=== PATIENT | male | born 1940 | race African-American/Black ===

== ENCOUNTER 2019-01-04 14:19 | Emergency (ER) | payer MEDICARE, OTHER ==
[~2019-01-04] VITALS: Ht 188 cm; Wt 90.7 kg
[2019-01-04 14:19] VITALS: BP 105/51
--- NOTE | 2019-01-04 14:20 | NUR ---
ED Nurse Note: pt brought by [facility] from [facility] due to seizure. witness by family member, no trauma reported, tonic - clonic for 2 mins. base line is AAO x1. upon arrival, pt open eyes spontaneously, follow command. BS 130 at the bed side. Dr. Gallagher notified. ekg done. on cardiac cath technologist. on seizure precaution. side rails x2 up, padded, on right side lying position, maintained airway. skin warm to touch, no open wound noted. came with diaper. will wait for the further order.
[2019-01-04 14:56] LABS: EOSINOPHILS % (AUTO) 0.6 % (0.0-3.0); HEMATOCRIT 38.7 % (42.0-52.0); LYMPHOCYTES % (AUTO) 23.1 % (20.0-45.0); MEAN CORPUSCULAR VOLUME 100 FL (80-99); MONOCYTES % (AUTO) 8.7 % (1.0-10.0); NEUTROPHILS % (AUTO) 66.6 % (45.0-75.0); PLATELET COUNT 367 K/UL (150-450); RED BLOOD COUNT 3.86 M/UL (4.70-6.10); RED CELL DISTRIBUTION WIDTH 11.7 % (11.6-14.8); WHITE BLOOD COUNT 9.5 K/UL (4.8-10.8)
--- NOTE | 2019-01-04 15:00 | NUR ---
HAND-OFF: Report given to JORDANA Ritter.
--- NOTE | 2019-01-04 15:01 | NUR ---
ED Nurse Note: Received report from JORDANA Fair. patint at no distress at this time. started IV fluids.
[2019-01-04] MEDS ORDERED: ACETAMINOPHEN325 M1 ORAL (15:06)
[2019-01-04] MEDS ORDERED: KEPPRA500 M4 ORAL (15:06)
[2019-01-04] MEDS ORDERED: SENNA8.6 M2 PO (15:06)
[2019-01-04] MEDS ORDERED: VITAMIN C250 MG ORAL (15:06)
[2019-01-04] MEDS ORDERED: NAMENDA5 MG ORAL (15:06)
[2019-01-04] MEDS ORDERED: BISACODYL10 M1 RC (15:06)
[2019-01-04 15:07] LABS: ANION GAP 8 mmol/L (5-15); BLOOD UREA NITROGEN 15 mg/dL (7-18); CALCIUM 9.4 MG/DL (8.5-10.1); CARBON DIOXIDE 30 MMOL/L (21-32); CHLORIDE 105 MMOL/L (98-107); POTASSIUM 4.1 MMOL/L (3.5-5.1); SODIUM 143 MMOL/L (136-145)
[2019-01-04 15:10] LABS: ALANINE AMINOTRANSFERASE 16 U/L (12-78); ALBUMIN 3.1 G/DL (3.4-5.0); ALBUMIN/GLOBULIN RATIO 0.9 (1.0-2.7); ALKALINE PHOSPHATASE 77 U/L (46-116); ASPARTATE AMINO TRANSFERASE 22 U/L (15-37); BILIRUBIN,TOTAL 0.6 MG/DL (0.2-1.0)
[2019-01-04 15:12] LABS: APPEARANCE,URINE SLIGHTLY CLOUDY; BILIRUBIN, URINE NEGATIVE (NEGATIVE); GLUCOSE, URINE (UA) NEGATIVE (NEGATIVE); KETONES,URINE 1+ (NEGATIVE); LEUKOCYTE ESTERASE ,URINE 1+ (NEGATIVE); NITRITE,URINE NEGATIVE (NEGATIVE); PH,URINE 5 (4.5-8.0); PROTEIN,URINE 2+ (NEGATIVE); UROBILINOGEN,URINE 4 MG/DL (0.0-1.0)
--- NOTE | 2019-01-04 15:12 | Diagnostic Imaging Report ---
Indication: Seizure Technique: Contiguous 5 mm thick transaxial imaging of the head obtained in a Siemens Sensation [address] scanner. Soft tissue and bone windows generated. Automatic Exposure Control was utilized. Total Dose length Product (DLP): 1499.[address] Dose Index Volume (CTDIvol): 70.38 mGy Comparison: none Findings: The size and configuration of the cortical sulci, basal cisterns, and ventricles are within normal limits for age. There is no mass effect, midline shift, or edema identified. There is no evidence of acute hemorrhage or abnormal intra-axial or extra-axial fluid collections. The bones and soft tissues are unremarkable. Impression: No mass effect, edema or acute bleed. The CT scanner at [facility] is accredited by the [employer] and the scans are performed using dose optimization techniques as appropriate to a performed exam including Automatic Exposure control.
[2019-01-04 15:20] LABS: COLOR,URINE YELLOW
[2019-01-04] MEDS ORDERED: cefTRIAXone 1 GM in NS 55 ML IVPB ONE (15:45)
[2019-01-04] MEDS ORDERED: Phenytoin 500 MG in NS 110 ML IVPB ONE (15:45)
--- NOTE | 2019-01-04 16:16 | Emergency Room Report ---
History of Present Illness General Chief Complaint: Seizure Source: Medical Record, EMS Present Illness HPI 78-year-old male presents ED for evaluation. Patient brought in by EMS from alf facility. Had a witnessed seizure at facility. No reported head injury. Patient has history of dementia and is at baseline mentation. History of seizures and takes Keppra. Unable to provide any additional history at this time. No reported signs of distress. No other aggravating relieving factors. No other associated symptoms Allergies: Coded Allergies: No Known Allergies (Unverified , 01/04/19) Patient History Past Medical History: seizures Past Surgical History: none Pertinent Family History: none Social History: Denies: smoking, alcohol use, drug use Immunizations: UTD Reviewed Nursing Documentation: PMH: Agreed; PSxH: Agreed Nursing Documentation-PMH Past Medical History: No History, Except For Hx Seizures: Yes Review of Systems All Other Systems: limited Physical Exam Vital Signs Date Time Temp Pulse Resp B/P (MAP) Pulse Ox O2 Delivery O2 Flow Rate FiO2 01/04/19 14:15 98.1 60 16 89/50 (63) 97 Room Air Sp02 EP Interpretation: reviewed, normal General Appearance: no apparent distress, non-toxic, other - dementia, Postictal Head: normocephalic Eyes: bilateral eye normal inspection, bilateral eye PERRL ENT: hearing grossly normal, normal pharynx, no angioedema, normal voice Neck: normal inspection Respiratory: chest non-tender, lungs clear, normal breath sounds, speaking full sentences Cardiovascular #1: regular rate, rhythm, no edema Gastrointestinal: normal bowel sounds, non tender, soft, non-distended, no guarding, no rebound Rectal: deferred Genitourinary: no CVA tenderness Musculoskeletal: back normal Neurologic: other - dementia Psychiatric: other - dementia Skin: normal color Lymphatic: no adenopathy Medical Decision Making Diagnostic Impression: Primary Impression: Seizure disorder Additional Impression: UTI (urinary tract infection) Qualified Codes: N39.0 - Urinary tract infection, site not specified ER Course Hospital Course 78-year-old M presents to ED status post seizure. Differential diagnosis includes- breakthrough seizure, alcohol abuse, noncompliance with medication Clinical course Patient placed on stretcher. Initial history and physical I ordered labs, IV fluids, CT brain Labs-electrolytes okay, no leukocytosis, hemoglobin/hematocrit stable. UA + bacteria CT Brain ok discussed findings with PMD Dr. Robert Starr. Agrees that patient can be safely discharged back to facility. On Keppra already. Will be given loading dose of Dilantin and prescribed Dilantin. Given Rocephin here. Will discharge with Keflex. Diagnosis - seizure disorder, UTI stable and discharged to SNF with Rx Keflex, Dilantin. Followup with PMD. Return to ED if symptoms recur or worsen Labs Test 01/04/19 14:45 White Blood Count 9.5 K/UL (4.8-10.8) Red Blood Count 3.86 M/UL (4.70-6.10) Hemoglobin 13.0 G/DL (14.2-18.0) Hematocrit 38.7 % (42.0-52.0) Mean Corpuscular Volume 100 FL (80-99) Mean Corpuscular Hemoglobin 33.8 PG (27.0-31.0) Mean Corpuscular Hemoglobin Concent 33.6 G/DL (32.0-36.0) Red Cell Distribution Width 11.7 % (11.6-14.8) Platelet Count 367 K/UL (150-450) Mean Platelet Volume 4.7 FL (6.5-10.1) Neutrophils (%) (Auto) 66.6 % (45.0-75.0) Lymphocytes (%) (Auto) 23.1 % (20.0-45.0) Monocytes (%) (Auto) 8.7 % (1.0-10.0) Eosinophils (%) (Auto) 0.6 % (0.0-3.0) Basophils (%) (Auto) 1.0 % (0.0-2.0) Urine Color Yellow Urine Appearance Slightly cloudy Urine pH 5 (4.5-8.0) Urine Specific [place] 1.020 (1.005-1.035) Urine Protein 2+ (NEGATIVE) Urine Glucose (UA) Negative (NEGATIVE) Urine Ketones 1+ (NEGATIVE) Urine Blood 5+ (NEGATIVE) Urine Nitrite Negative (NEGATIVE) Urine Bilirubin Negative (NEGATIVE) Urine Urobilinogen 4 MG/DL (0.0-1.0) Urine Leukocyte Esterase 1+ (NEGATIVE) Urine RBC Tntc /HPF (0 - 0) Urine WBC Tntc /HPF (0 - 0) Urine Squamous Epithelial Cells None /LPF (NONE/OCC) Urine Bacteria Few /HPF (NONE) Sodium Level 143 MMOL/L (136-145) Potassium Level 4.1 MMOL/L (3.5-5.1) Chloride Level 105 MMOL/L (98-107) Carbon Dioxide Level 30 MMOL/L (21-32) Anion Gap 8 mmol/L (5-15) Blood Urea Nitrogen 15 mg/dL (7-18) Creatinine 1.0 MG/DL (0.55-1.30) Estimat Glomerular Filtration Rate mL/min (>60) Glucose Level 122 MG/DL (74-106) Calcium Level 9.4 MG/DL (8.5-10.1) Total Bilirubin 0.6 MG/DL (0.2-1.0) Aspartate Amino Transf (AST/SGOT) 22 U/L (15-37) Alanine Aminotransferase (ALT/SGPT) 16 U/L (12-78) Alkaline Phosphatase 77 U/L (46-116) Total Protein 6.6 G/DL (6.4-8.2) Albumin 3.1 G/DL (3.4-5.0) Globulin 3.5 g/dL Albumin/Globulin Ratio 0.9 (1.0-2.7) Acetaminophen Level < 2 MCG/ML (10-30) Serum Alcohol < 3 mg/dL EKG Diagnostic Results Rate: normal Rhythm: NSR ST Segments: other - RBBB ASA given to the pt in ED: No Rhythm Strip Diag. Results EP Interpretation: yes Rhythm: NSR, no PVC's, no ectopy CT/MRI/US Diagnostic Results CT/MRI/US Diagnostic Results : Imaging Test Ordered: CT head Impression no acute process Last Vital Signs Date Time Temp Pulse Resp B/P (MAP) Pulse Ox O2 Delivery O2 Flow Rate FiO2 01/04/19 14:19 70 18 Room Air 01/04/19 14:19 98.1 105/51 100 Status: improved Disposition: XFER SNF Condition: Stable Scripts Phenytoin Sodium Extended* (DILANTIN*) 100 Mg Capsule 100 MG ORAL THREE TIMES A DAY for 7 Days, CAP 0 Refills Prov: Arnoldo Gallagher MD 01/04/19 Arnoldo Gallagher MD Jan 04, 2019 16:16
[2019-01-04 16:27] VITALS: BP 140/72
[2019-01-04] MEDS ORDERED: DILANTIN100 MG ORAL (17:02)
--- NOTE | 2019-01-04 17:05 | NUR ---
SPOKE WITH ROBERT FROM [facility]. INFORMED THE NURSE THAT THE PATIENT WILL BE GOING BACK. ETA OF 0921
[2019-01-04 18:15] VITALS: BP 123/88
--- NOTE | 2019-01-04 18:15 | NUR ---
ER DISCHARGE NOTE: Patient is cleared to be discharged per ERMD, pt is aox4, on room air, with stable vital signs. pt was given dc and prescription instructions, pt was able to verbalize understanding, pt id band and iv site removed without complications. pt is able to ambulate with steady gait. pt took all belongings.
--- NOTE | 2019-01-05 21:46 | Cardiology Report ---
APPROVED REPORT EKG Measurement Heart [id number] Normal sinus rhythm with sinus arrhythmia Right bundle branch block Abnormal ECG
== END 2019-01-04 18:15 ==
LOC: EDBD 14:19 → EMR 16:44
DX: G40.909 Epilepsy, unspecified, not intractable, without status epilepticus (principal); N39.0 Urinary tract infection, site not specified; F03.90 Unspecified dementia, unspecified severity, without behavioral disturbance, psychotic disturbance, mood disturbance, and anxiety; I45.10 Unspecified right bundle-branch block
CPT/HCPCS: 36415; 70450; 80053; 81003; 85025; 87086; 93005; 96365; 96368; 99284; G0480; J0696; J1165; 80329

== ENCOUNTER 2019-02-24 10:56 | Emergency (ER) | payer MEDICARE, OTHER ==
[~2019-02-24] VITALS: Ht 182.9 cm; Wt 81.6 kg
[2019-02-24 10:56] VITALS: BP 114/81
[~2019-02-24 10:56] MED LIST: ACETAMINOPHEN325 M1 ORAL; BISACODYL10 M1 RC; DILANTIN100 MG ORAL; KEPPRA500 M4 ORAL; NAMENDA5 MG ORAL; SENNA8.6 M2 PO; VITAMIN C250 MG ORAL
--- NOTE | 2019-02-24 11:00 | NUR ---
ED Nurse Note: Patient brought in by ambulance from [facility], per EMS, nursing staff noticed patient's right hand swelling since today this morning. patient is alert awake breathing unlabored and even.
[2019-02-24 12:46] LABS: BASOPHILS % (AUTO) 0.7 % (0.0-2.0); EOSINOPHILS % (AUTO) 0.7 % (0.0-3.0); HEMOGLOBIN 13.9 G/DL (14.2-18.0); LYMPHOCYTES % (AUTO) 29.9 % (20.0-45.0); MEAN CORPUSCULAR VOLUME 104 FL (80-99); MONOCYTES % (AUTO) 10.2 % (1.0-10.0); NEUTROPHILS % (AUTO) 58.5 % (45.0-75.0); PLATELET COUNT 340 K/UL (150-450); RED BLOOD COUNT 4.04 M/UL (4.70-6.10); RED CELL DISTRIBUTION WIDTH 12.1 % (11.6-14.8); WHITE BLOOD COUNT 9.7 K/UL (4.8-10.8)
[2019-02-24 13:03] LABS: ANION GAP 8 mmol/L (5-15); BLOOD UREA NITROGEN 13 mg/dL (7-18); CALCIUM 9.3 MG/DL (8.5-10.1); CARBON DIOXIDE 30 MMOL/L (21-32); CHLORIDE 103 MMOL/L (98-107); CREATININE 0.7 MG/DL (0.55-1.30); POTASSIUM 3.9 MMOL/L (3.5-5.1); SODIUM 141 MMOL/L (136-145)
[2019-02-24 13:07] LABS: ALANINE AMINOTRANSFERASE 47 U/L (12-78); ALBUMIN/GLOBULIN RATIO 0.8 (1.0-2.7); ALKALINE PHOSPHATASE 110 U/L (46-116); ASPARTATE AMINO TRANSFERASE 30 U/L (15-37); BILIRUBIN,TOTAL 0.3 MG/DL (0.2-1.0)
--- NOTE | 2019-02-24 13:22 | Diagnostic Imaging Report ---
Indication: Pain, trauma Technique: 3 views left hand Comparison: none Findings: There is a surgical sideplate and screws reducing old healed second metacarpal fracture. The sideplate appears to be fractured. However, the bone appears to be intact, without definite fracture present. No acute fractures demonstrated elsewhere. No dislocations. There is degenerative narrowing of multiple proximal and distal interphalangeal joints. There is some associated proliferative change. Impression: Evidence of prior surgery of the second metacarpal. The hardware appears fractured but the bone appears intact. No acute bony trauma Mild degenerative changes as described
--- NOTE | 2019-02-24 13:34 | Emergency Room Report ---
History of Present Illness General Chief Complaint: General Complaint Source: Patient, Medical Record, EMS, PMD Present Illness HPI This patient is brought in from a long-term facility. Apparently the staff noted an area of swelling on the patient's right hand and the primary care physician is requesting evaluation and x-ray. There was no trauma. The patient himself has no complaints. There is been no fever or chills. There is been no other symptoms. The patient has a history of normal pressure hydrocephalus, dysphagia, seizures, contractures. Allergies: Coded Allergies: No Known Allergies (Unverified , 01/04/19) Patient History Past Medical History: none - NPH, , see triage record, HTN - Prostate CA, GERD , CVA/TIA - Hx of SDH/CVA, dementia, seizures Social History: Denies: smoking, alcohol use, drug use Reviewed Nursing Documentation: PMH: Agreed; PSxH: Agreed Nursing Documentation-PM Past Medical History: No History, Except For Hx Seizures: Yes Review of Systems All Other Systems: negative except mentioned in HPI Physical Exam Vital Signs Date Time Temp Pulse Resp B/P (MAP) Pulse Ox O2 Delivery O2 Flow Rate FiO2 02/24/19 10:51 97.5 84 18 114/81 (92) 96 Room Air Sp02 EP Interpretation: reviewed, normal General Appearance: no apparent distress, alert, GCS 15, non-toxic Head: normocephalic, atraumatic ENT: hearing grossly normal, normal pharynx, no angioedema, normal voice Neck: full range of motion, supple/symm/no masses Respiratory: chest non-tender, lungs clear, normal breath sounds, no respiratory distress, no retraction, no accessory muscle use, speaking full sentences Cardiovascular #1: regular rate, rhythm, no edema Gastrointestinal: normal bowel sounds, non tender, soft, non-distended, no guarding, no rebound Rectal: deferred Musculoskeletal: other - Old deformity of R. dorsal hand. No swelling or erythema. Contracture of R. hand and wrist. Baseline. Neurologic: alert, responsive, speech normal, other - At baseline Psychiatric: mood/affect normal Skin: other - See RN skin exam. Medical Decision Making Diagnostic Impression: Primary Impression: Hardware failure ER Course This patient underwent x-ray of the left hand and left wrist. There is evidence of a hardware fracture but no evidence of a bone fracture. This is likely chronic. I did discuss the case with the on-call orthopedist Dr. Pal. He states that this does not need emergency evaluation and likely does not need intervention at all. There is no acute injury. There is no evidence of cellulitis on exam. The patient is returned to the long-term facility. Laboratory Tests Test 02/24/19 12:29 White Blood Count 9.7 K/UL (4.8-10.8) Red Blood Count 4.04 M/UL (4.70-6.10) L Hemoglobin 13.9 G/DL (14.2-18.0) L Hematocrit 42.0 % (42.0-52.0) Mean Corpuscular Volume 104 FL (80-99) H Mean Corpuscular Hemoglobin 34.3 PG (27.0-31.0) H Mean Corpuscular Hemoglobin Concent 33.0 G/DL (32.0-36.0) Red Cell Distribution Width 12.1 % (11.6-14.8) Platelet Count 340 K/UL (150-450) Mean Platelet Volume 4.7 FL (6.5-10.1) L Neutrophils (%) (Auto) 58.5 % (45.0-75.0) Lymphocytes (%) (Auto) 29.9 % (20.0-45.0) Monocytes (%) (Auto) 10.2 % (1.0-10.0) H Eosinophils (%) (Auto) 0.7 % (0.0-3.0) Basophils (%) (Auto) 0.7 % (0.0-2.0) Sodium Level 141 MMOL/L (136-145) Potassium Level 3.9 MMOL/L (3.5-5.1) Chloride Level 103 MMOL/L (98-107) Carbon Dioxide Level 30 MMOL/L (21-32) Anion Gap 8 mmol/L (5-15) Blood Urea Nitrogen 13 mg/dL (7-18) Creatinine 0.7 MG/DL (0.55-1.30) Estimate Glomerular Filtration Rate mL/min (>60) Glucose Level 96 MG/DL (74-106) Calcium Level 9.3 MG/DL (8.5-10.1) Total Bilirubin 0.3 MG/DL (0.2-1.0) Aspartate Amino Transferase (AST) 30 U/L (15-37) Alanine Aminotransferase (ALT) 47 U/L (12-78) Alkaline Phosphatase 110 U/L (46-116) Total Protein 7.0 G/DL (6.4-8.2) Albumin 3.0 G/DL (3.4-5.0) L Globulin 4.0 g/dL Albumin/Globulin Ratio 0.8 (1.0-2.7) L Other X-Ray Diagnostic Results Other X-Ray Diagnostic Results : X-Ray ordered: R. hand/R. wrist xray # of Views/Limited Vs Complete: Complete Indication: Pain EP Interpretation: No Interpretation: other - Fractured hardware. No bony fracture. See official report in the EMR. Impression: No acute disease Electronically Signed by: Isabel Mendoza DO. Last Vital Signs Date Time Temp Pulse Resp B/P (MAP) Pulse Ox O2 Delivery O2 Flow Rate FiO2 02/24/19 11:14 84 18 Room Air 02/24/19 10:56 97.5 114/81 96 Status: improved Disposition: HOME, SELF-CARE Condition: Serious Referrals: ROBBIN VILLALOBOS (PCP) Isabel Mendoza DO Feb 24, 2019 13:34
[2019-02-24] MEDS ORDERED: FLOMAX0.4 MG ORAL (14:05)
[2019-02-24] MEDS ORDERED: MULTIVITAMINS1 EAC2 ORAL (14:05)
[2019-02-24] MEDS ORDERED: ARICEPT10 MG ORAL (14:05)
[2019-02-24] MEDS ORDERED: MILK OF MA400 MG/51 ORAL (14:05)
--- NOTE | 2019-02-24 14:45 | NUR ---
ED Nurse Note: called [facility] and spoke with Mar Ramirez RN letting them know that the patient is going back to the facilty.
--- NOTE | 2019-02-24 14:59 | NUR ---
ER DISCHARGE NOTE: Patient is cleared to be discharged per CASSANDRA JORDAN pt is aox1, on room air, with stable vital signs. pt/family/Mar RN was given dc instructions, pt was able to verbalize understanding, pt id band and iv site removed without complications. pt left with ambulance. pt took all belongings. family at bedside.
[2019-02-24 15:02] VITALS: BP 114/81
== END 2019-02-24 15:00 | disposition home or self-care (01) ==
LOC: EDBD 10:56 → EMR 11:19
DX: T84.018A Broken internal joint prosthesis, other site, initial encounter (principal); I10 Essential (primary) hypertension; Z85.46 Personal history of malignant neoplasm of prostate; K21.9 Gastro-esophageal reflux disease without esophagitis; Z86.73 Personal history of transient ischemic attack (TIA), and cerebral infarction without residual deficits; F03.90 Unspecified dementia, unspecified severity, without behavioral disturbance, psychotic disturbance, mood disturbance, and anxiety; Y83.8 Other surgical procedures as the cause of abnormal reaction of the patient, or of later complication, without mention of misadventure at the time of the procedure; Y92.129 Unspecified place in nursing home as the place of occurrence of the external cause
CPT/HCPCS: 36415; 80053; 85025; 99284